=== PATIENT | male | born 1985 | race Hispanic/Latino ===

== ENCOUNTER 2019-03-03 10:32 | Emergency (ER) | payer SELFPAY ==
[~2019-03-03] VITALS: Ht 177.8 cm; Wt 93.0 kg
[2019-03-03] MEDS ORDERED: VALACYCLOVIR HCL 500 MG TAB PO ONE (11:45)
== END 2019-03-03 11:52 | disposition home or self-care (01) ==
LOC: ER 10:32
DX: B02.9 Zoster without complications (principal)
CPT/HCPCS: 99282